=== PATIENT | female | born 1975 | race Asian ===

== ENCOUNTER 2017-03-09 08:34 | Outpatient (CLI) | payer OTHER ==
[2017-03-09 14:32] LABS: BASOPHILS % (AUTO) 0.6 %; EOSINOPHILS # (AUTO) 0.1 10^3/uL (0.0-0.7); EOSINOPHILS % (AUTO) 2.5 %; HCT - HEMATOCRIT 37.8 % (37.0-47.0); HGB - HEMOGLOBIN 12.5 g/dL (12.0-16.0); LYMPHOCYTES # (AUTO) 1.1 10^3/uL (1.5-3.5); LYMPHOCYTES % (AUTO) 27.6 %; MEAN CORPUSCULAR HEMOGLOBIN 28.3 pg (27.0-31.0); MEAN CORPUSCULAR HGB CONC 33.1 g/dL (32.0-36.0); MEAN CORPUSCULAR VOLUME 85.4 fL (81.0-99.0); MEAN PLATELET VOLUME 10.1 fL (7.9-10.8); MONOCYTES # (AUTO) 0.3 10^3/uL (0.0-1.0); MONOCYTES % (AUTO) 6.6 %; NEUTROPHILS # (AUTO) 2.4 10^3/uL (1.5-6.6); NEUTROPHILS % (AUTO) 62.7 %; RED BLOOD COUNT 4.42 10^6/uL (4.20-5.40); UNCORRECTED WHITE BLOOD COUNT 3.8 x10^3/uL; WHITE BLOOD COUNT 3.8 x10^3/uL (4.8-10.8)
[2017-03-09 14:43] LABS: ALBUMIN/GLOBULIN RATIO 1.1 (1.0-2.2); BILIRUBIN,TOTAL 0.7 mg/dL (0.2-1.0); CREATININE 0.8 mg/dL (0.4-1.0); POTASSIUM 4.2 mmol/L (3.5-5.0)
== END 2017-03-09 08:35 | disposition home or self-care (01) ==
LOC: LAB.R 08:34
PROVIDERS: ATTEND Physician Assistant Medical
DX: E03.9 Hypothyroidism, unspecified (principal); E55.9 Vitamin D deficiency, unspecified; Z79.899 Other long term (current) drug therapy; D50.9 Iron deficiency anemia, unspecified
CPT/HCPCS: 80053; 82306; 84443; 85025

== ENCOUNTER 2017-04-28 09:59 | Outpatient (CLI) | payer OTHER | END 2017-04-28 10:00 | disposition home or self-care (01) | LOC: LAB.R 09:59 | PROVIDERS: ATTEND Physician Assistant Medical | DX: E03.9 Hypothyroidism, unspecified (principal); Z79.899 Other long term (current) drug therapy | CPT/HCPCS: 84443 ==

== ENCOUNTER 2017-09-29 13:06 | Emergency (ER) | payer OTHER ==
[2017-09-29] MEDS ORDERED: IBUPROFEN 400 MG TABLET PO STA (13:37)
[2017-09-29] MEDS ORDERED: LIDOCAINE PATCH 5% TOP STA (13:37)
[2017-09-29] MEDS ORDERED: MECLIZINE 12.5 MG TABLET PO STA (13:38)
--- NOTE | 2017-09-29 13:41 | ED Physician Documentation ---
History of Present Illness - Stated complaint Stated Complaint: leg pain - Chief complaint Chief Complaint: Ext Problem - Additonal information Additional information: hx from pt 42 f visiting from [place] has had L calf pain and dilated veins for 1-2 weeks - doesn't recall exact date but per SO was after plan flight states her PMD told her to come to ER to see if she has a DVT no CP or SOA also today she developed R sided neck pain and she feels dizzy Review of Systems Constitutional: denies: Fever, Chills Eyes: reports: Decreased vision (blurry earlier per pt but not now). denies: Photophobia Ears: denies: Ear pain Throat: denies: Sore throat Respiratory: denies: Dyspnea, Cough GI: denies: Abdominal Pain, Nausea, Vomiting : denies: Now EGA (denies - states she is certain she is not preg) Musculoskeletal: reports: Neck pain (R side), Extremity pain (LLE) Neurologic: denies: Focal weakness, Numbness, Head injury Endocrine: denies: Easy bruising / bleeding Immunocompromised: denies: Immunocompromised PD PAST MEDICAL HISTORY - Past Medical History Cardiovascular: None Respiratory: None Endocrine/Autoimmune: HyPOthyroidism GI: Hemorrhoids : None HEENT: None Psych: None Musculoskeletal: None Derm: None - 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, section - Present Medications Home Medications: Ambulatory Orders Medication Instructions Recorded Confirmed Iron 18 mg PO DAILY 04/13/13 09/29/17 Levothyroxine Sodium [Synthroid] 50 mcg PO DAILY 04/13/13 09/29/17 Ibuprofen [Motrin] 400 mg PO Q6H PRN #30 tablet 09/29/17 Lidocaine Patch 5% [Lidoderm Patch] 1 each TOP DAILY PRN #10 patch 09/29/17 Meclizine [Antivert] 25 mg PO Q6H PRN #20 tablet 09/29/17 - Allergies Allergies/Adverse Reactions: Allergies Allergy/AdvReac Type Severity Reaction Status Date / Time No Known Drug Allergies Allergy Verified 04/13/13 14:39 - Social History Does the pt smoke?: No Smoking Status: Never smoker PD ED PE NORMAL - Vitals Vital signs reviewed: Yes - General General: Alert and oriented X 3 - HEENT HEENT: Atraumatic, PERRL, EOMI (no nystagmus) - Neck Neck: Supple, no meningeal sign, No bony TTP, Other (R sided mm spasm and limited ROM) - Cardiac Cardiac: RRR - Respiratory Respiratory: No respiratory distress, Clear bilaterally - Abdomen Abdomen: Soft, Non tender - Derm Derm: Normal color - Extremities Extremities: Other (LLE mild TTP calf and some sup dilated veins no cord, not sig swollen vs R, MSV intact) Results - Vitals Vitals: Vital Signs - 24 hr 09/29/17 09/29/17 13:15 13:32 Temperature 36.8 C 36.7 C Heart Rate 80 89 Respiratory 17 18 Rate Blood Pressure 144/86 H 121/104 H O2 Saturation 100 100 Oxygen O2 Source Room air - Rads (name of study) LLE doppler Radiology: See rad report (no DVT) PD MEDICAL DECISION MAKING - ED course ED course: no DVT no sign of infection good pulses doubt arterial occlusion no injury not sure why leg hurts but feel may be managed as an outpt having ruled out as above re neck mm tightness and vertigo, txed with lido and meclizine and feels better - etiology unclear as well but does not seem c/w meningitis, there was no trauma to suggest spine fx or vertebral artery injury etc will dc with symptomatic meds Departure - Departure Disposition: 01 Home, Self Care Clinical Impression: Vertigo, Neck muscle spasm, Leg pain, left Condition: Good Instructions: ED Spasm Neck No Injury, ED Dizziness UKO, ED Muscle Pain Leg Cramps Follow-Up: Kishor Yancey MD [Primary Care Provider] - Prescriptions: Ibuprofen [Motrin] 400 mg PO Q6H PRN #30 tablet PRN Reason: Pain Lidocaine Patch 5% [Lidoderm Patch] 1 each TOP DAILY PRN #10 patch PRN Reason: Pain Meclizine [Antivert] 25 mg PO Q6H PRN #20 tablet PRN Reason: Dizziness Comments: The ultrasound was fine - no blood clot was seen. Recommend warm compresses and motrin as needed for the pain. If the pain persists more than another week, please have your PMD order another ultrasound because occasionally a small clot can be missed on the first ultrasound. For the neck pain also recommend motrin and the lidocaine patches. And for the dizziness try meclizine - no driving until you are not dizzy and are not needing meclizine any longer Follow up with your PMD if not better by next week. Return if worse
[2017-09-29 15:07] VITALS: BP 128/82
--- NOTE | 2017-09-30 09:01 | Ultrasound Report ---
DATE OF SERVICE: 09/29/2017 LEFT LOWER EXTREMITY DOPPLER ULTRASOUND: 09/29/2017 COMPARISON: None INDICATION: Calf swelling and pain after flight. TECHNIQUE: Sonographic evaluation of the left lower extremity veins was performed. FINDINGS: All sampled segments demonstrated normal color Doppler flow, and a normal response to compression, augmentation, and respiratory variation. IMPRESSION: Negative for DVT. TD: 09/29/2017 20:52 [facility]
== END 2017-09-29 15:13 | disposition home or self-care (01) ==
LOC: ED 13:06
DX: R42 Dizziness and giddiness (principal); M62.838 Other muscle spasm; M79.605 Pain in left leg; E03.9 Hypothyroidism, unspecified
CPT/HCPCS: 93971; 99283; A9270

== ENCOUNTER 2017-10-21 15:54 | Outpatient (CLI) | payer OTHER ==
--- NOTE | 2017-10-21 21:13 | XRAY Report ---
EXAM: RIGHT SHOULDER RADIOGRAPHY EXAM DATE: 10/21/2017 04:48 PM. CLINICAL HISTORY: Shoulder pain COMPARISON: None. TECHNIQUE: 3 views. FINDINGS: Bones: Normal. No fracture or bone lesion. Joints: The glenohumeral and acromioclavicular joints are normal. Soft tissues: The visualized hemithorax is unremarkable. No soft tissue swelling. IMPRESSION: Negative shoulder radiography. [facility] Referring Provider Line: [phone] SITE ID: [id number]
--- NOTE | 2017-10-21 21:15 | XRAY Report ---
EXAM: CERVICAL SPINE RADIOGRAPHY EXAM DATE: 10/21/2017 04:48 PM. CLINICAL HISTORY: Right shoulder pain COMPARISONS: None. TECHNIQUE: 3 views. FINDINGS: Alignment: Normal. No spondylolisthesis or scoliosis. Bones: The cervical vertebral bodies and posterior elements are well visualized from the skull base t hrough C7-T1. No fractures or bone lesions. Disks: Disk heights are maintained. There are small anterior marginal osteophytes of the mid cervical spine. Facets: No significant abnormalities. Soft Tissues: Normal. No prevertebral soft tissue swelling. The visualized lung apices are clear. IMPRESSION: No evidence of fracture, dislocation, or significant degenerative disease. [facility] Referring Provider Line: [phone] SITE ID: [id number]
== END 2017-10-21 15:55 | disposition home or self-care (01) ==
LOC: DI 15:54
PROVIDERS: ATTEND Physician Assistant Medical
DX: M25.511 Pain in right shoulder (principal); M50.10 Cervical disc disorder with radiculopathy, unspecified cervical region
CPT/HCPCS: 72040

== ENCOUNTER 2018-01-09 08:00 | Outpatient (CLI) | payer OTHER ==
[2018-01-09 12:58] LABS: BASOPHILS % (AUTO) 0.4 %; BILIRUBIN,URINE NEGATIVE (NEGATIVE); EOSINOPHILS # (AUTO) 0.1 10^3/uL (0.0-0.7); GLUCOSE, URINE (UA) NEGATIVE (NEGATIVE); HGB - HEMOGLOBIN 11.5 g/dL (12.0-16.0); KETONES,URINE (UA) NEGATIVE (NEGATIVE); LEUKOCYTE ESTERASE, URINE NEGATIVE (NEGATIVE); LYMPHOCYTES # (AUTO) 1.3 10^3/uL (1.5-3.5); MEAN CORPUSCULAR HEMOGLOBIN 26.9 pg (27.0-31.0); MEAN CORPUSCULAR HGB CONC 33.4 g/dL (32.0-36.0); MEAN CORPUSCULAR VOLUME 80.6 fL (81.0-99.0); MEAN PLATELET VOLUME 9.1 fL (7.9-10.8); MONOCYTES # (AUTO) 0.6 10^3/uL (0.0-1.0); NEUTROPHILS # (AUTO) 5.3 10^3/uL (1.5-6.6); NEUTROPHILS % (AUTO) 72.6 %; NITRITE,URINE NEGATIVE (NEGATIVE); OCCULT BLOOD,URINE NEGATIVE (NEGATIVE); PLT - PLATELET COUNT 231 10^3/uL (130-450); PROTEIN,URINE NEGATIVE (NEGATIVE); RED BLOOD COUNT 4.26 10^6/uL (4.20-5.40); RED CELL DISTRIBUTION WIDTH 19.6 % (12.0-15.0); UROBILINOGEN,URINE 0.2 (NORMAL) E.U./dL (NORMAL); WHITE BLOOD COUNT 7.3 x10^3/uL (4.8-10.8)
[2018-01-09 12:59] LABS: CLARITY,URINE CLEAR (CLEAR)
[2018-01-09 13:12] LABS: ALBUMIN 3.9 g/dL (3.2-5.5); ALBUMIN/GLOBULIN RATIO 0.8 (1.0-2.2); BILIRUBIN,TOTAL 0.4 mg/dL (0.2-1.0); CALCIUM 9.2 mg/dL (8.5-10.3); CREATININE 0.7 mg/dL (0.4-1.0); CRP - C-REACTIVE PROTEIN 6.2 mg/dL (0-1.0); TOTAL PROTEIN 8.5 g/dL (6.7-8.2)
== END 2018-01-09 08:01 | disposition home or self-care (01) ==
LOC: LAB.R 08:00
PROVIDERS: ATTEND Physician Assistant Medical
DX: R10.30 Lower abdominal pain, unspecified (principal); R79.89 Other specified abnormal findings of blood chemistry
CPT/HCPCS: 80053; 81001; 81003; 83690; 85025; 85651; 86140; 87086

== ENCOUNTER 2018-01-09 17:15 | Outpatient (CLI) | payer OTHER ==
[~2018-01-09 17:15] MED LIST: IOPAMIDOL-300 100 ML VIAL ONE; IOPAMIDOL-300 50 ML VIAL ONE
[2018-01-09] MEDS ORDERED: IOPAMIDOL-300 50 ML VIAL PO ONE (19:09)
[2018-01-09] MEDS ORDERED: IOPAMIDOL-300 100 ML VIAL IVP ONE (19:10)
--- NOTE | 2018-01-09 19:35 | CT Report ---
EXAM: CT ABDOMEN AND PELVIS EXAM DATE: 01/09/2018 07:10 PM. CLINICAL HISTORY: LOWER ABDOMINAL PAIN, UNSPECIFIED. COMPARISONS: 04/17/2015. TECHNIQUE: Routine helical CT imaging was performed through the abdomen and pelvis. IV contrast: 100 cc Isovue-300. Enteric contrast: Yes. Reconstructions: Coronal and sagittal. In accordance with CT protocol optimization, one or more of the following dose reduction techniques w ere utilized for this exam: automated exposure control, adjustment of mA and/or KV based on patient s ize, or use of iterative reconstructive technique. FINDINGS: Lung Bases: Unremarkable. Liver: Normal. No masses. Gallbladder/Bile Ducts: Unremarkable. Spleen: Normal. Small accessory spleen. Pancreas: Normal. Adrenal Glands: Normal. Kidneys: Normal. No masses or hydronephrosis. Peritoneal Cavity/Bowel: Normal. No free fluid, free air or adenopathy. No masses or acute inflammato ry process. The appendix is well visualized and normal. Pelvic Organs: Normal. The bladder and visualized pelvic organs are within normal limits. Vasculature: No aneurysms or other significant abnormality. Bones: No significant abnormality. Other: None. IMPRESSION: Normal abdomen and pelvis CT. [facility] Referring Provider Line: [phone] SITE ID: [id number]
== END 2018-01-09 17:16 | disposition home or self-care (01) ==
LOC: DI 17:15
PROVIDERS: ATTEND Physician Assistant Medical
DX: R10.30 Lower abdominal pain, unspecified (principal); R50.9 Fever, unspecified; R79.89 Other specified abnormal findings of blood chemistry
CPT/HCPCS: 74177; Q9967; 80053; 81001; 81003; 83690; 85025; 85651; 86140; 87086

== ENCOUNTER 2018-01-13 12:22 | Outpatient (CLI) | payer OTHER ==
--- NOTE | 2018-01-13 20:49 | Ultrasound Report ---
PELVIC ULTRASOUND: 01/13/2018 INDICATION: Left adnexal discomfort. TECHNIQUE: Transabdominal pelvic ultrasound performed for global evaluation. Transvaginal pelvic ultrasound performed for detailed evaluation. Real-time scanning performed and static images obtained with Doppler. COMPARISON: CT 01/09/2018 FINDINGS: The uterus is anteverted, measuring 9.3 x 5.7 x 4.6 cm. The endometrial echo complex measures 9 mm. No focal myometrial mass is identified. The ovaries are normal, with the right measuring 2.6 x 1.1 x 1.0 cm, and the left measuring 2.4 x 1.7 x 1.1 cm. Trace free fluid is present in the cul-de-sac. IMPRESSION: TRACE FREE FLUID. OTHERWISE NORMAL PELVIC ULTRASOUND. NO ADNEXAL MASS. TD: 01/13/2018 20:48
== END 2018-01-13 12:23 | disposition home or self-care (01) ==
LOC: DI 12:22
PROVIDERS: ATTEND Physician Assistant Medical
DX: R10.2 Pelvic and perineal pain (principal)
CPT/HCPCS: 76830; 76856

== ENCOUNTER 2018-03-07 08:00 | Outpatient (CLI) | payer OTHER ==
[2018-03-07 12:46] LABS: EOSINOPHILS # (AUTO) 0.1 10^3/uL (0.0-0.7); HGB - HEMOGLOBIN 11.2 g/dL (12.0-16.0); LYMPHOCYTES # (AUTO) 0.9 10^3/uL (1.5-3.5); LYMPHOCYTES % (AUTO) 30.2 %; MEAN CORPUSCULAR HEMOGLOBIN 25.8 pg (27.0-31.0); MEAN CORPUSCULAR HGB CONC 32.2 g/dL (32.0-36.0); MEAN CORPUSCULAR VOLUME 80.2 fL (81.0-99.0); MEAN PLATELET VOLUME 9.8 fL (7.9-10.8); MONOCYTES # (AUTO) 0.2 10^3/uL (0.0-1.0); MONOCYTES % (AUTO) 7.7 %; NEUTROPHILS # (AUTO) 1.7 10^3/uL (1.5-6.6); NEUTROPHILS % (AUTO) 58.1 %; PLT - PLATELET COUNT 189 10^3/uL (130-450); RED BLOOD COUNT 4.35 10^6/uL (4.20-5.40); RED CELL DISTRIBUTION WIDTH 15.1 % (12.0-15.0); WHITE BLOOD COUNT 2.9 x10^3/uL (4.8-10.8)
[2018-03-07 13:06] LABS: ALKALINE PHOSPHATASE 87 IU/L (42-121); ALT ALANINE AMINOTRANSFERASE 31 IU/L (10-60); AST ASPARTATE AMINOTRANSFERASE 30 IU/L (10-42); BILIRUBIN,TOTAL 0.5 mg/dL (0.2-1.0); BUN - BLOOD UREA NITROGEN 15 mg/dL (6-20); CALCIUM 9.2 mg/dL (8.5-10.3); CARBON DIOXIDE - CO2 26 mmol/L (21-32); CHLORIDE 104 mmol/L (101-111); CHOL/HDL RATIO 1.7 (<4.4); CHOLESTEROL 189 mg/dL; CREATININE 0.8 mg/dL (0.4-1.0); GFR - MDRD 78 (>89); GLUCOSE 89 mg/dL (70-100); HDL CHOLESTEROL 110 mg/dL; LDL CHOLESTEROL,CALCULATED 71 mg/dL; LDL/HDL RATIO 0.6 (<4.4); SODIUM 137 mmol/L (135-145); TOTAL PROTEIN 8.1 g/dL (6.7-8.2); VLDL CHOLESTEROL 8 mg/dL
[2018-03-07 13:42] LABS: PLATELET ESTIMATE, MANUAL NORMAL (130-450,000) (NORMAL); RBC MORPHOLOGY (MULTIPLE) NORMAL APPEARANCE (NORMAL)
== END 2018-03-07 08:01 ==
LOC: LAB.R 08:00
PROVIDERS: ATTEND Physician Assistant Medical
DX: Z00.00 Encounter for general adult medical examination without abnormal findings (principal); E55.9 Vitamin D deficiency, unspecified; Z79.899 Other long term (current) drug therapy; D50.9 Iron deficiency anemia, unspecified; R79.89 Other specified abnormal findings of blood chemistry; E03.9 Hypothyroidism, unspecified
CPT/HCPCS: 80053; 80061; 82306; 83721; 84443; 85025

== ENCOUNTER 2018-03-20 15:27 | Outpatient (CLI) | END 2018-03-20 15:28 | disposition home or self-care (01) ==

== ENCOUNTER 2019-05-15 11:04 | Outpatient (CLI) | payer OTHER | END 2019-05-15 11:05 | disposition EMS.NT | LOC: EMS 11:04 | PROVIDERS: ATTEND Surgery | DX: S09.93XA Unspecified injury of face, initial encounter (principal); V43.51XA Car driver injured in collision with sport utility vehicle in traffic accident, initial encounter; Y92.413 State road as the place of occurrence of the external cause ==

== ENCOUNTER 2019-05-15 11:43 | Emergency (ER) | payer OTHER ==
[2019-05-15] MEDS ORDERED: ACETAMINOPHEN 325 MG TABLET PO STA (12:19)
[2019-05-15] MEDS ORDERED: oxyCODONE 5 MG TABLET PO STA (12:19)
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
[2019-05-15] MEDS ORDERED: TETANUS/DIPHTHERIA/PERTUSSIS 0.5 ML SYRINGE IM ONE (12:28)
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
[2019-05-15] MEDS ORDERED: LIDOCAINE 2%-EPI 1:100000 20 ML MDV SUBQ STA (13:39)
[2019-05-15 15:25] VITALS: BP 127/80
== END 2019-05-15 16:43 | disposition home or self-care (01) ==
LOC: ED 11:43
DX: S01.511A Laceration without foreign body of lip, initial encounter (principal); V49.49XA Driver injured in collision with other motor vehicles in traffic accident, initial encounter; W22.11XA Striking against or struck by driver side automobile airbag, initial encounter; Y92.410 Unspecified street and highway as the place of occurrence of the external cause
CPT/HCPCS: 12011; 12052; 70486; 90471; 90715; 99283; 99284; A9270

== ENCOUNTER 2019-05-23 09:37 | Outpatient (CLI) | payer OTHER ==
--- NOTE | 2019-05-23 15:53 | XRAY Report ---
Reason: NECK PAIN ACUTE Procedure Date: 05/23/2019 Accession Number: [id number] / [id number] Procedure: XR - Cervical Spine 2 View CPT Code: FULL RESULT: EXAM: CERVICAL SPINE RADIOGRAPHY EXAM DATE: 05/23/2019 09:51 AM. CLINICAL HISTORY: Neck pain acute. COMPARISONS: CERVICAL SPINE COMPLETE 10/21/2017 4:27 PM. TECHNIQUE: 3 views. FINDINGS: Alignment: Normal. No spondylolisthesis or scoliosis. Bones: The cervical vertebral bodies and posterior elements are well visualized from the skull base through C7-T1. No fractures or bone lesions. Disks: Normal. Disk heights are maintained. No significant change in appearance of small anterior marginal osteophytes in the mid cervical spine. Facets: No degenerative disease. Soft Tissues: Normal. No prevertebral soft tissue swelling. The visualized lung apices are clear. IMPRESSION: No evidence of fracture or subluxation detected. No significant degenerative changes. Stable exam. [facility]
== END 2019-05-23 09:38 | disposition home or self-care (01) ==
LOC: DI 09:37
PROVIDERS: ATTEND Nurse Practitioner
DX: M54.2 Cervicalgia (principal)
CPT/HCPCS: 72040

== ENCOUNTER 2019-11-19 14:25 | Outpatient (CLI) | payer OTHER ==
--- NOTE | 2019-11-27 12:57 | Mammography Report ---
Reason: ROUTINE MAMMO Procedure Date: 11/19/2019 Accession Number: [id number] / [id number] Procedure: [facility] - Screening Mammo w/Chente CPT Code: Final Report FULL RESULT: EXAM: Screening Mammo w/Chente DATE: 11/19/2019 2:50 PM CLINICAL HISTORY: Screening encounter. History of late childbearing and early menses. TECHNIQUE: (B) - Bilateral CC, laterally exaggerated CC, MLO views were obtained. COMPARISON: 03/20/2018 through 08/26/2011. PARENCHYMAL PATTERN: (VD) - The breast(s) demonstrate(s) extremely dense parenchyma, limiting the sensitivity of mammography. FINDINGS: There are no suspicious masses, calcifications, or areas of distortion. IMPRESSION: Negative examination. BI-RADS category 1. RECOMMENDATION: (ANNUAL) - Recommend routine annual screening mammography. BI-RADS CATEGORY: (1) - Negative. STANDARD QUALIFYING STATEMENTS: 1. This examination was not reviewed with the aid of Computer-Aided Detection (CAD). 2. A negative or benign imaging report should not preclude biopsy if clinically suspicious findings are present. 3. Dense breasts may obscure an underlying neoplasm. 4. This examination was reviewed with the aid of 3D breast imaging (tomosynthesis).
== END 2019-11-19 14:26 | disposition home or self-care (01) ==
LOC: DI 14:25
PROVIDERS: ATTEND Family Medicine
DX: Z12.31 Encounter for screening mammogram for malignant neoplasm of breast (principal)
CPT/HCPCS: 77063; 77067

== ENCOUNTER 2019-12-20 13:40 | Outpatient (CLI) | payer OTHER ==
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
== END 2019-12-20 13:41 | disposition home or self-care (01) ==
LOC: DI 13:40
PROVIDERS: ATTEND Family Medicine
DX: M47.812 Spondylosis without myelopathy or radiculopathy, cervical region (principal)
CPT/HCPCS: 72125

== ENCOUNTER 2020-01-22 15:08 | Outpatient (CLI) | payer OTHER | END 2020-01-22 15:09 | disposition home or self-care (01) | LOC: LAB 15:08 | PROVIDERS: ATTEND Family Medicine | DX: Z00.00 Encounter for general adult medical examination without abnormal findings (principal) | CPT/HCPCS: 36415; 86735; 86762; 86765; 86787 ==

== ENCOUNTER 2020-04-09 08:34 | Outpatient (CLI) | payer OTHER ==
[2020-04-09 12:34] LABS: BASOPHILS % (AUTO) 0.7 %; EOSINOPHILS # (AUTO) 0.1 10^3/uL (0.0-0.7); EOSINOPHILS % (AUTO) 2.8 %; HGB - HEMOGLOBIN 13.2 g/dL (12.0-16.0); LYMPHOCYTES # (AUTO) 1.3 10^3/uL (1.5-3.5); LYMPHOCYTES % (AUTO) 28.5 %; MEAN CORPUSCULAR HEMOGLOBIN 28.6 pg (27.0-31.0); MEAN CORPUSCULAR VOLUME 89.6 fL (81.0-99.0); MEAN PLATELET VOLUME 11.8 fL (7.9-10.8); MONOCYTES # (AUTO) 0.3 10^3/uL (0.0-1.0); MONOCYTES % (AUTO) 6.3 %; NEUTROPHILS # (AUTO) 2.8 10^3/uL (1.5-6.6); NEUTROPHILS % (AUTO) 61.5 %; PLT - PLATELET COUNT 245 10^3/uL (130-450); RED BLOOD COUNT 4.61 10^6/uL (4.20-5.40); RED CELL DISTRIBUTION WIDTH 12.2 % (12.0-15.0); WHITE BLOOD COUNT 4.6 x10^3/uL (4.8-10.8)
[2020-04-09 13:01] LABS: ALBUMIN 4.9 g/dL (3.2-5.5); ALBUMIN/GLOBULIN RATIO 1.6 (1.0-2.2); BILIRUBIN,TOTAL 0.7 mg/dL (0.2-1.0); CALCIUM 8.9 mg/dL (8.5-10.3); CREATININE 0.9 mg/dL (0.4-1.0)
[2020-04-09 13:18] LABS: FREE T3 2.57 pg/mL (2.5-3.9); FREE T4 (FREE THYROXINE) 0.27 ng/dL (0.58-1.64)
[2020-04-09 15:52] LABS: THYROID STIMULATING HORMONE 101.38 uIU/mL (0.34-5.60)
== END 2020-04-09 23:59 | disposition home or self-care (01) ==
LOC: LAB.WCP 08:34
PROVIDERS: ATTEND Family Medicine
DX: E03.9 Hypothyroidism, unspecified (principal); R63.5 Abnormal weight gain
CPT/HCPCS: 36415; 80053; 84439; 84443; 84481; 85025

== ENCOUNTER 2020-09-12 14:29 | Outpatient (CLI) | payer OTHER ==
--- NOTE | 2020-09-12 16:08 | Ultrasound Report ---
PROCEDURE: Duplex Ext Veins Left INDICATIONS: VARICOSE VEINS OF LT LEG W/PAIN TECHNIQUE: Real-time imaging, as well as color and pulse Doppler interrogation, were performed of the lower extr emity deep veins from the inguinal ligament to the popliteal fossa. COMPARISON: None. FINDINGS: The deep veins are normally compressible, and free of intraluminal thrombus. Color and pu lse Doppler demonstrate normal phasic intraluminal flow. There is normal augmentation response to di stal compression maneuver. There is a serpiginous focus of decreased echogenicity within the subcutaneous tissues of the poplite al fossa. Minimal scattered areas of vascular flow are identified. IMPRESSION: 1. No deep venous thrombosis. 2. Prominent superficial thrombophlebitis at the popliteal fossa with likely areas of intermixed thro mbosis. Reviewed by: Lorelei Shultz MD on 09/12/2020 4:07 PM PST Approved by: Lorelei Shultz MD on 09/12/2020 4:07 PM PST Station ID: [id number]
== END 2020-09-12 14:30 | disposition home or self-care (01) ==
LOC: DI 14:29
PROVIDERS: ATTEND Family Medicine
DX: I83.812 Varicose veins of left lower extremity with pain (principal); I80.02 Phlebitis and thrombophlebitis of superficial vessels of left lower extremity

== ENCOUNTER 2020-10-13 08:00 | Outpatient (CLI) | payer OTHER ==
[2020-10-13 19:02] LABS: THYROID STIMULATING HORMONE 44.41 uIU/mL (0.34-5.60)
[2020-10-13 19:04] LABS: FREE T3 2.98 pg/mL (2.5-3.9); FREE T4 (FREE THYROXINE) 0.63 ng/dL (0.58-1.64)
== END 2020-10-13 23:59 | disposition home or self-care (01) ==
LOC: LAB.WCP 08:00
PROVIDERS: ATTEND Family Medicine
DX: E03.9 Hypothyroidism, unspecified (principal)
CPT/HCPCS: 36415; 84439; 84443; 84481

== ENCOUNTER 2020-10-16 10:06 | Outpatient (CLI) | payer OTHER ==
--- NOTE | 2020-10-16 15:08 | XRAY Report ---
PROCEDURE: Cervical Spine w/Flex/Ext INDICATIONS: CERVICAL SPONDYLOSIS TECHNIQUE: 5 views of the cervical spine were acquired. COMPARISON: CT cervical spine/ FINDINGS: Bones: No fractures or dislocations to the C7-T1 level. No suspicious bony lesions. There is mild straightening of cervical curvature. There is trace retrolisthesis of C3 on C4, C4 on C5. There is mo derate to severe disc space narrowing at C5-6, minimal throughout the remainder of the cervical spine . Multilevel uncovertebral hypertrophy is present. There is normal range of motion between flexion an d extension, with preserved normal bony alignment. Soft tissues: Prevertebral soft tissues are normal in thickness. IMPRESSION: Early degenerative changes most notable at C6-7. There is normal range of motion without dynamic instability. Reviewed by: Lorelei Shultz MD on 10/16/2020 3:07 PM PST Approved by: Lorelei Shultz MD on 10/16/2020 3:07 PM [facility] Station ID: [id number]
== END 2020-10-16 10:07 | disposition home or self-care (01) ==
LOC: DI 10:06
PROVIDERS: ATTEND Neurological Surgery
DX: M47.812 Spondylosis without myelopathy or radiculopathy, cervical region (principal)

== ENCOUNTER 2021-06-23 08:00 | Outpatient (CLI) | payer OTHER ==
[2021-06-23 18:00] LABS: BASOPHILS % (AUTO) 0.5 %; EOSINOPHILS # (AUTO) 0.3 10^3/uL (0.0-0.7); EOSINOPHILS % (AUTO) 4.7 %; HCT - HEMATOCRIT 40.5 % (37.0-47.0); HGB - HEMOGLOBIN 12.8 g/dL (12.0-16.0); LYMPHOCYTES # (AUTO) 1.5 10^3/uL (1.5-3.5); LYMPHOCYTES % (AUTO) 25.2 %; MEAN CORPUSCULAR HGB CONC 31.6 g/dL (32.0-36.0); MEAN CORPUSCULAR VOLUME 88.6 fL (81.0-99.0); MEAN PLATELET VOLUME 12.1 fL (7.9-10.8); MONOCYTES # (AUTO) 0.3 10^3/uL (0.0-1.0); MONOCYTES % (AUTO) 4.5 %; NEUTROPHILS # (AUTO) 3.7 10^3/uL (1.5-6.6); NEUTROPHILS % (AUTO) 64.9 %; PLT - PLATELET COUNT 238 10^3/uL (130-450); RED BLOOD COUNT 4.57 10^6/uL (4.20-5.40); WHITE BLOOD COUNT 5.8 x10^3/uL (4.8-10.8)
[2021-06-23 18:18] LABS: ALBUMIN 4.5 g/dL (3.2-5.5); ALBUMIN/GLOBULIN RATIO 1.2 (1.0-2.2); ALKALINE PHOSPHATASE 99 IU/L (42-121); ALT ALANINE AMINOTRANSFERASE 23 IU/L (10-60); AST ASPARTATE AMINOTRANSFERASE 30 IU/L (10-42); BILIRUBIN,TOTAL 0.6 mg/dL (0.2-1.0); BUN - BLOOD UREA NITROGEN 18 mg/dL (6-20); CALCIUM 9.5 mg/dL (8.5-10.3); CARBON DIOXIDE - CO2 22 mmol/L (21-32); CHLORIDE 104 mmol/L (101-111); CHOLESTEROL 246 mg/dL; CREATININE 0.8 mg/dL (0.4-1.0); GFR - MDRD 77 (>89); GLUCOSE 79 mg/dL (70-100); HDL CHOLESTEROL 121 mg/dL; LDL CHOLESTEROL,CALCULATED 114 mg/dL; LDL/HDL RATIO 0.9 (<4.4); POTASSIUM 3.8 mmol/L (3.5-5.0); SODIUM 139 mmol/L (135-145); TOTAL PROTEIN 8.2 g/dL (6.7-8.2); TRIGLYCERIDES 53 mg/dL; VLDL CHOLESTEROL 11 mg/dL
[2021-06-23 18:31] LABS: THYROID STIMULATING HORMONE 5.06 uIU/mL (0.34-5.60)
[2021-06-23 21:07] LABS: ESTIMATED AVERAGE GLUCOSE 114 mg/dL (70-100); HEMOGLOBIN A1c% 5.6 % (4.27-6.07)
== END 2021-06-23 23:59 | disposition home or self-care (01) ==
LOC: LAB.WCP 08:00
PROVIDERS: ATTEND Family Medicine
DX: Z00.00 Encounter for general adult medical examination without abnormal findings (principal); E03.9 Hypothyroidism, unspecified
CPT/HCPCS: 36415; 80053; 80061; 83036; 83721; 84443; 85025

== ENCOUNTER 2023-08-05 12:02 | Outpatient (CLI) | payer OTHER ==
[2023-08-05 12:38] LABS: HCT - HEMATOCRIT 41.7 % (37.0-47.0); HGB - HEMOGLOBIN 13.5 g/dL (12.0-16.0); MEAN CORPUSCULAR HEMOGLOBIN 27.8 pg (27.0-31.0); MEAN CORPUSCULAR HGB CONC 32.4 g/dL (32.0-36.0); MEAN CORPUSCULAR VOLUME 85.8 fL (81.0-99.0); MEAN PLATELET VOLUME 11.4 fL (7.9-10.8); RED BLOOD COUNT 4.86 10^6/uL (4.20-5.40); WHITE BLOOD COUNT 4.4 x10^3/uL (4.8-10.8)
[2023-08-05 13:08] LABS: THYROID STIMULATING HORMONE 0.03 uIU/mL (0.34-5.60)
--- NOTE | 2023-08-05 19:32 | Ultrasound Report ---
PROCEDURE: Head or Neck Soft Tissue INDICATIONS: ENLARGED THYROID TECHNIQUE: Real-time scanning was performed of the thyroid gland, with image documentation. COMPARISON: None FINDINGS: Right: Thyroid lobe measures 5.0 x 1.6 x 1.7 cm, and is heterogenous in echotexture. Left: Thyroid lobe measures 5.2 x 1.8 x 1.5 cm, and is heterogenous in echotexture. Isthmus: 6 mm thick. IMPRESSION: Heterogenous thyroid parenchyma without focal nodule ACR TI-RADS definitions and recommendations: TI-RADS 1 (benign): 0 points. FNA not needed. TI-RADS 2 (not suspicious): 2 points. FNA not needed. TI-RADS 3 (mildly suspicious): 3 points. "FNA if 2.5 cm or larger, follow up if 1.5 cm or larger (at 1, 3, and 5 years). TI-RADS 4 (moderately suspicious): 4-6 points. "FNA if 1.5 cm or larger, follow up if 1 cm or larger (at 1, 2, 3, and 5 years). TI-RADS 5 (highly suspicious): 7 points or more. "FNA if 1 cm or larger, follow up if 0.5 cm or larger (every year for 5 years). Reviewed by: Shalom Cotton MD on 08/05/2023 6:31 PM [place] Approved by: Shalom Ctoton MD on 08/05/2023 6:31 PM [place] Station ID: [id number]
== END 2023-08-05 12:03 | disposition home or self-care (01) ==
LOC: DI 12:02
PROVIDERS: ATTEND Family Medicine
DX: E04.9 Nontoxic goiter, unspecified (principal); K64.8 Other hemorrhoids; E03.8 Other specified hypothyroidism
CPT/HCPCS: 36415; 82728; 84439; 84443; 85027

== ENCOUNTER 2023-11-25 12:04 | Outpatient (CLI) | payer OTHER ==
[2023-11-25 13:07] LABS: THYROID STIMULATING HORMONE 6.51 uIU/mL (0.34-5.60)
== END 2023-11-25 12:05 | disposition home or self-care (01) ==
LOC: LAB 12:04
PROVIDERS: ATTEND Family Medicine
DX: E03.9 Hypothyroidism, unspecified (principal)
CPT/HCPCS: 36415; 84439; 84443

== ENCOUNTER 2023-11-25 12:15 | Outpatient (CLI) | payer OTHER ==
--- NOTE | 2023-11-28 10:12 | Mammography Report ---
BILATERAL DIGITAL SCREENING MAMMOGRAM 3D/2D WITH EXAGGERATED CC: 11/25/2023 CLINICAL: Routine screening. Comparison is made to exams dated: 11/19/2019 mammogram, 03/20/2018 mammogram, 03/22/2016 mammogram, an d 06/06/2014 mammogram - [facility]. Both breasts are extremely dense, which lowers the sensitivity of mammography (category d />75% gland ular tissue). No significant masses, calcifications, or other findings are seen in either breast. There has been no significant interval change. IMPRESSION: NEGATIVE There is no mammographic evidence of malignancy. A 1 year screening mammogram is recommended. Based on the Tyrer Cuzick model (a risk assessment model) the patient's lifetime risk is 19.9% and he r 10 year risk is 4.8%. According to the ACR, ACS, and NCCN guidelines, an annual breast MRI exam joshua ng with mammogram is recommended if the patient's lifetime risk is 20% or greater. This exam was interpreted at Station ID: [id number]. NOTE: For mammograms, a report in lay terms will be sent to the patient. Approximately 15% of breast malignancies will not be visualized mammographically. In the management of a palpable breast mass, a negative mammogram must not discourage biopsy of a clinically suspicious lesion. Electronically Signed By: Brinda trujillo/germán:11/25/2023 14:22:53 letter sent: No_Letter ACR BI-RADS Category 1: Negative 3341F PARENCHYMAL PATTERN: (VD) - The breast(s) demonstrate(s) extremely dense parenchyma, limiting the sen sitivity of mammography. BI-RADS CATEGORY: (1) - 1 RECOMMENDATION: (ANNUAL) - Recommend routine annual screening mammography. [id number] 1 year screening LATERALITY: (B)
== END 2023-11-25 12:16 | disposition home or self-care (01) ==
LOC: DI 12:15
PROVIDERS: ATTEND Family Medicine
DX: Z12.31 Encounter for screening mammogram for malignant neoplasm of breast (principal); R92.343 Mammographic extreme density, bilateral breasts; E03.9 Hypothyroidism, unspecified
CPT/HCPCS: 36415; 84439; 84443